=== PATIENT | female | born 1995 | race Caucasian/White ===

== ENCOUNTER 2021-08-21 20:37 | Emergency (ER) | payer BC ==
[2021-08-21 20:49] VITALS: BP 109/78; PULSE 78; TEMP 98.3; BMI 26.2
== END 2021-08-22 00:04 | disposition home or self-care (01) ==
LOC: JER 20:37
DX: Z11.52 Encounter for screening for COVID-19 (principal)
CPT/HCPCS: 87804; 87807; 99283-25; C9803; U0003; U0005